=== PATIENT | female | born 1935 | race American Indian/Alaskan Native ===

== ENCOUNTER 2019-11-08 23:04 | Emergency (ER) | payer OTHER, MEDICAID, SELFPAY ==
--- NOTE | 2019-11-08 23:05 | DI.CT.S_ITS ---
PROCEDURE: CT HEAD/BRAIN WO CON INDICATIONS: fall, confusion, dementia TECHNIQUE: Noncontrast 4.5 mm thick angled axial sections acquired from the foramen magnum to the vertex, with coronal and sagittal reformats. For radiation dose reduction, the following was used: automated exposure control, adjustment of mA and/or kV according to patient size. COMPARISON: [facility], CR, XR SHOULDER LT MIN 2V, 11/09/2019, 0:35. [facility], CR, XR SHOULDER LT MIN 2V, 11/08/2019, 23:17. [facility], CR, XR PELVIS 1-2V, 11/08/2019, 23:16. FINDINGS: Image quality: Excellent. CSF spaces: Basal cisterns are patent. No extra-axial fluid collections. The ventricles are symmetric in size and shape. Brain: No intracranial bleeds or masses. There is cerebral volume loss for age, with resultant ventricular and sulcal prominence. There are periventricular and deep white matter chronic small vessel ischemic changes. There is intracranial internal carotid artery atherosclerosis. Skull and face: Calvarium and visualized facial bones appear intact, without suspicious lesions. Sinuses: Visualized sinuses and mastoids are clear. IMPRESSION: Normal noncontrast head CT for age, with note made of brain parenchymal volume loss and chronic small vessel ischemic change. No acute intracranial hemorrhage is seen. Note: No significant discrepancy from the preliminary report. Dictated by: Guerrero Bennett M.D. on 11/09/2019 at 8:45 Approved by: Guerrero Bennett M.D. on 11/09/2019 at 8:46
--- NOTE | 2019-11-08 23:05 | DI.RAD.S_ITS ---
PROCEDURE: XR SHOULDER LT MIN 2V INDICATIONS: fall with shoulder pain TECHNIQUE: 2 views of the shoulder were acquired. COMPARISON: [facility], CR, XR SHOULDER LT MIN 2V, 11/09/2019, 0:35. [facility], CR, XR PELVIS 1-2V, 11/08/2019, 23:16. [facility], CT, CT HEAD/BRAIN WO CON, 11/08/2019, 23:11. FINDINGS: Bones: There is an anterior left shoulder dislocation. No definite associated fractures are seen. Age-appropriate bony degenerative changes are seen. The visualized ribs appear intact. No suspicious lytic or blastic lesions are seen. Soft tissues: No suspicious soft tissue calcifications. The visualized lung demonstrates an unremarkable appearance. IMPRESSION: Anterior shoulder dislocation. Dictated by: Guerrero Bennett M.D. on 11/09/2019 at 8:47 Approved by: Guerrero Bennett M.D. on 11/09/2019 at 8:49
[2019-11-08 23:06] VITALS: PULSE 72; O2SAT 94
[2019-11-08 23:07] VITALS: BP 203/92; PULSE 73; RESP 16; O2SAT 95
--- NOTE | 2019-11-08 23:07 | DI.RAD.S_ITS ---
PROCEDURE: XR PELVIS 1-2V INDICATIONS: trauma TECHNIQUE: 1 view(s) of the pelvis acquired. COMPARISON: [facility], CR, XR SHOULDER LT MIN 2V, 11/09/2019, 0:35. [facility], CR, XR SHOULDER LT MIN 2V, 11/08/2019, 23:17. [facility], CT, CT HEAD/BRAIN WO CON, 11/08/2019, 23:11. FINDINGS: Bones: No fractures or dislocations. No suspicious bony lesions. Note is made of osteitis pubis, which is not considered to be frankly abnormal in a woman of this age. Age-appropriate lower lumbar spine degenerative changes are noted. There is at least moderate superior joint space narrowing seen of both hips, with associated remodeling changes with subchondral sclerosis and osteophyte formation. Soft tissues: Visualized bowel gas pattern is normal. No suspicious soft tissue calcifications. Right-sided pelvic clips are seen. IMPRESSION: Degenerative changes, without an acute abnormality identified by plain film. If there is point tenderness (or other clinical suspicion for a fracture not seen on these images) then a dedicated CT or a short-term followup plain film series could be considered for further evaluation, as clinically appropriate. Dictated by: Guerrero Bennett M.D. on 11/09/2019 at 8:46 Approved by: Guerrero Bennett M.D. on 11/09/2019 at 8:47
--- NOTE | 2019-11-08 23:12 | ED_ITS ---
HPI - Extremity Injury (Upper) General Chief Complaint: Fall Stated Complaint: L shoulder disloaction Time Seen by Provider: 11/08/19 23:05 Source: patient and EMS Mode of arrival: EMS Limitations: no limitations History of Present Illness HPI narrative: 84-year-old nonsmoker with early dementia presents by air medical transport for evaluation of left shoulder pain. She lives at home with her daughter who stepped out briefly and upon returning home found her mother complaining of severe left shoulder pain. The patient states that she was merely reaching out to open a door when it popped out. Also, there is report that she has had a few falls lately. Patient reports no head neck or back pain. She denies any chest pain or shortness of breath. She denies numbness, weakness or tingling. She had been given some Versed and fentanyl prior to her arrival with pain relatively well controlled. MD complaint: injury to: left and shoulder Other injuries: none Handedness: right Place: home Severity: moderate Relieving factors: immobilization Exacerbating factors: movement of extremity Context: fall and direct blow Associated symptoms: denies other symptoms Related Data Allergies Allergy/AdvReac Type Severity Reaction Status Date / Time No Known Drug Allergies Allergy Verified 11/08/19 23:17 Review of Systems Constitutional Constitutional: Denies chills, Denies fatigue, Denies fever(s), Denies frequent falls, Denies lethargy and Denies weakness Eyes Eyes: Denies change in vision, Denies eye discharge, Denies irritation and Denies loss of vision ENT Ears, Nose, Mouth, and Throat: Denies change in voice, Denies dizziness, Denies neck pain, Denies sore throat and Denies throat swelling Cardiovascular Cardiovascular: Denies chest pain, Denies irregular heart rhythm, Denies lightheadedness, Denies palpitations, Denies dyspnea, Denies dyspnea on exertion and Denies orthopnea Respiratory Respiratory: Denies cough, Denies dyspnea, Denies dyspnea on exertion and Denies wheezing Gastrointestinal Gastrointestinal: Denies abdominal pain, Denies change in bowel habits, Denies diarrhea, Denies nausea and Denies vomiting Musculoskeletal Musculoskeletal: Reports arthralgias, Reports limited range of motion, Denies neck pain and Denies numbness Integumentary/Breasts Skin/Breast: Denies pruritus, Denies erythema, Denies rash and Denies wounds Neurologic Neurologic: Denies behavioral changes, Denies confusion, Denies dizziness, Denies frequent falls, Denies loss of vision, Denies numbness and Denies weakness Psychiatric Psychiatric: Denies anxiety, Denies behavioral changes, Denies confusion, Denies depression, Denies homicidal ideation and Denies suicidal ideation Endocrine Endocrine: Denies fatigue, Denies flushing and Denies palpitations Hematologic/Lymphatic Hematologic/Lymphatic: Denies easy bruising Allergic/Immunologic Allergic/Immunologic: Denies urticaria, Denies throat swelling and Denies wheezing Patient History Social History Smoking Status: Unknown if ever smoked alcohol intake frequency: 0-2 drinks per day Substance Use Type: does not use Exam Narrative Exam Narrative: GENERAL: [84] year old patient appears stated age. Well- nourished, well-developed patient, in mild distress. GCS 14. Pleasantly confused HEAD: Atraumatic. Normocephalic. EYES: Pupils equal round and reactive. Extraocular motions intact. No scleral icterus. No injection or drainage. ENT: Nose without bleeding, purulent drainage. Throat without erythema, tonsillar hypertrophy or exudate. Airway patent. NECK: Trachea midline. Non tender CARDIOVASCULAR: Regular rate and rhythm without murmurs, gallops, or rubs. RESPIRATORY: Clear to auscultation. Breath sounds equal bilaterally. No wheezes, rales, or rhonchi. GASTROINTESTINAL: Abdomen soft, non-tender, nondistended. EXTREMITIES: Decreased range of motion of left shoulder secondary to pain and mechanical obstruction. No numbness, tingling or weakness. Palpable step-off and deformity consistent with dislocation. BACK: Nontender without deformity or crepitance. No flank tenderness.. SKIN: No rash or erythema of visible areas Initial Vital Signs Initial Vital Signs: Vital Signs Pulse Rate 72 11/08/19 23:06 Pulse Oximetry 94 11/08/19 23:06 Procedures Orthopedic Joint Reduction Joint #1: Time Out Performed: Yes Side: left Joint Reduction Location: shoulder Analgesia: procedural sedation Shoulder Technique Used (if applicable): traction/counter-traction and external rotation Post-reduction neuro exam: intact Post-reduction vascular: intact Post Reduction X-Ray Obtained: Yes Post Reduction X-Ray Results: reduced Splint Applied: Yes Patient Tolerated Procedure: Well Orthopedic Splinting/Casting Injury #1: Side: left Upper Extremity Injury Location: shoulder Upper Extremity Immobilizer: sling/shoulder immobilizer Post splinting neuro exam: intact Post splinting vascular exam: intact Placed by: Nursing Procedural Sedation Consent signed: Yes Time out performed: Yes Indication: fracture/dislocation reduction ASA Class: II Mallampati Airway Classification: Class II Preparation: monitor car operator applied, pulse oximeter, capnometry used, supplemental O2 applied, suction/airway equipment at bedside and IV secured IV Propofol dose (mg): 100 Intraservice time/total sedation time (min): 10 ED Sedation Level: Moderate (Concious) Patient Tolerated Procedure: Well Complications: hypoxia Interventions: Airway repositioned and Assist by BVM Course Orders Ordered: ED Orders 11/08/19 23:05 CT head/brain wo con Stat XR shoulder LT min 2V Stat 11/08/19 23:07 XR pelvis 1-2V Stat 11/08/19 23:44 Basic Metabolic Panel Stat Complete Blood Count AUTO DIFF Stat 11/09/19 00:11 XR shoulder LT min 2V Stat Discontinued Medications Lactated Ringer's (Lactated Ringers) 500 mls @ 1,000 mls/hr IV BOLUS ONE Stop: 11/09/19 01:55 Last Admin: 11/09/19 02:13 Dose: Not Given Documented by: VENITA Propofol (Diprivan) 100 mg IV NOW ONE Stop: 11/08/19 23:09 Last Admin: 11/09/19 00:00 Dose: 100 mg Documented by: MARY Vital Signs Vital signs: Vital Signs - 8 hr 11/08/19 23:37 11/08/19 23:58 11/09/19 00:00 Pulse Rate 74 75 80 Respiratory Rate 21 18 Blood Pressure 132/92 H 237/113 H Pulse Oximetry 94 96 96 11/09/19 00:07 11/09/19 00:09 11/09/19 00:11 Pulse Rate 75 73 73 Respiratory Rate 31 H 32 H Blood Pressure 180/85 H 203/96 H Pulse Oximetry 93 96 11/09/19 00:30 11/09/19 01:00 11/09/19 01:30 Pulse Rate 80 80 82 Respiratory Rate 27 H 34 H 42 H Blood Pressure Pulse Oximetry 96 94 95 11/09/19 02:00 11/09/19 02:12 11/09/19 02:18 Pulse Rate 85 96 H 93 H Respiratory Rate 31 H Blood Pressure 213/93 H Pulse Oximetry 97 95 95 MDM - Extremity Injury (Upper) Lab Data Result diagrams: 11/08/19 23:44 11/08/19 23:44 Labs: Lab Results 11/08/19 11/08/19 Range/Units 23:44 23:44 WBC 9.5 (4.5-11.0) X10^3/uL RBC 3.99 L (4.0-5.2) X10^6/uL Hgb 12.7 (12.0-16.0) g/dL Hct 37.6 (36-46) % MCV 94.3 (80-100) fL MCH 31.9 (26-34) PG MCHC 33.8 (30-36) % RDW 13.0 (11.6-14.8) % Plt Count 199 (150-400) X10^3/uL Neut % (Auto) 66.2 (50-75) % Lymph % (Auto) 23.0 L (25-40) % [place] % (Auto) 8.8 (3-14) % Eos % (Auto) 1.0 L (2-4) % Baso % (Auto) 1.0 (0-2) % Neut # (Auto) 6300 (8615-2127) /uL Lymph # (Auto) 2200 (6575-9360) /uL [place] # (Auto) 800 (0-900) /uL Eos # (Auto) 100 (0-450) /uL Baso # (Auto) 100 (0-100) /uL Sodium 130 L (137-145) mmol/L Potassium 4.0 (3.4-5.1) mmol/L Chloride 101 (98-107) mmol/L Carbon Dioxide 20 L (22-32) mmol/L BUN 10 (7-17) mg/dL Creatinine 0.68 (0.52-1.04) mg/dL Estimated GFR > 60.0 (>60) mL/min BUN/Creatinine Ratio 14.7 (6-22) Glucose 96 (80-110) mg/dL Calcium 8.0 L (8.4-10.2) mg/dL Discharge Plan Departure Patient Disposition: Home Clinical Impression: Dislocation of shoulder region Qualifiers: Encounter type: initial encounter Laterality: left Qualified Code(s): S43.005A - Unspecified dislocation of left shoulder joint, initial encounter Discharge Date/Time: 11/09/19 02:42 Instructions: How to Prevent Falls Activity Restrictions/Additional Instructions: *You have been diagnosed with [left shoulder dislocation] *What to do: *Take medications as directed: Tylenol or Motrin for pain *Follow up with your primary care provider in 2-3 days, call for an appointment. Let them know you were seen in the Emergency Department and that we ask that you be seen in follow up *Return to ER if you should have any new, worsening or concerning symptoms Referrals: Mari Ricardo MD [Physician] - Adis Booker MD [Primary Care Provider] -
[2019-11-08 23:37] VITALS: BP 132/92; PULSE 74; O2SAT 94
[2019-11-08 23:53] LABS: Add Manual Diff / Slide Review NO; Basophils Absolute Auto 100 /uL (0-100); Eosinophils Absolute Auto 100 /uL (0-450); Hematocrit 37.6 % (36-46); Hemoglobin 12.7 g/dL (12.0-16.0); Lymphocytes Absolute Auto 2200 /uL (1100-4500); Mean Corpuscular HGB Conc 33.8 % (30-36); Mean Corpuscular Hemoglobin 31.9 PG (26-34); Mean Corpuscular Volume 94.3 fL (80-100); Monocytes Absolute Auto 800 /uL (0-900); Monocytes Percent Auto 8.8 % (3-14); Neutrophils Absolute Auto 6300 /uL (1500-7000); Neutrophils Percent Auto 66.2 % (50-75); Platelet Count 199 X10^3/uL (150-400); Red Blood Cell Count 3.99 X10^6/uL (4.0-5.2); White Blood Cell Count 9.5 X10^3/uL (4.5-11.0)
[2019-11-08 23:58] VITALS: BP 237/113; PULSE 75; RESP 21; O2SAT 96
[2019-11-09] VITALS (10 sets, daily range): BP systolic 180–213; BP diastolic 85–96; PULSE 73–96; RESP 18–42; O2SAT 93–97
[2019-11-09] LABS: BUN Creatinine Ratio 14.7 (6-22); Blood Urea Nitrogen 10 mg/dL (7-17); Carbon Dioxide 20 mmol/L (22-32); Chloride 101 mmol/L (98-107); Estimated Glomerular Filt Rate > 60.0 mL/min (>60); Glucose 96 mg/dL (80-110); HEMOLYSIS 47 (0-50); Sodium 130 mmol/L (137-145)
[2019-11-09] MEDS: propofoL 200 MG/20 ML VIAL 100 MG IV
--- NOTE | 2019-11-09 00:11 | DI.RAD.S_ITS ---
PROCEDURE: XR SHOULDER LT MIN 2V INDICATIONS: reduction TECHNIQUE: 2 views of the shoulder were acquired. COMPARISON: [facility], CR, XR SHOULDER LT MIN 2V, 11/08/2019, 23:17. FINDINGS: This examination is limited by involuntary motion artifact. Bones: The previously seen dislocation has been reduced. No fractures can be seen. The visualized ribs appear intact. Age-appropriate bony degenerative changes are seen. Soft tissues: No suspicious soft tissue calcifications. The visualized lung demonstrates an unremarkable appearance. IMPRESSION: Left shoulder relocation. No fractures are seen on these limited images. Dictated by: Guerrero Bennett M.D. on 11/09/2019 at 9:01 Approved by: Guerrero Bennett M.D. on 11/09/2019 at 9:02
--- NOTE | 2019-11-09 00:31 | PC.NURSE ---
shoulder reduction performed at bedside by md using propifal for sedation
--- NOTE | 2019-11-09 02:20 | PC.NURSE ---
Daughter now at bedside, Dr Mcgowan in to discuss plan of care/discharge instructions.
== END 2019-11-09 02:42 | disposition home or self-care (01) ==
PROVIDERS: Emergency Provider Emergency Medicine; PCP Internal Medicine
DX: S43.005A Unspecified dislocation of left shoulder joint, initial encounter (principal)
CPT/HCPCS: 23650; 70450; 72170; 73030; 80048; 85025; 94770; 99152; 99283; 99285; J2704